=== PATIENT | male | born 1980 ===

== ENCOUNTER 2017-08-08 16:47 | Emergency (ER) | payer OTHER ==
[2017-08-08 16:47] VITALS: BMI 24.0
[2017-08-08] MEDS ORDERED: Midazolam 2 MG/2 ML VIAL IVP STA (17:58)
[2017-08-08] MEDS ORDERED: Midazolam 2 MG/2 ML VIAL ONE (18:02)
--- NOTE | 2017-08-08 18:19 | C.PDOC ---
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 Patient states he fell down 2 steps, out stretched his arm to break his fall. Denies symptoms prior to the fall, head injury, LOC, chest pain, SOB, neck pain, back pain, weakness or numbness. Time Seen by Provider: 08/08/17 18:20 Chief Complaint (Nursing): Trauma History Per: Patient History/Exam Limitations: no limitations Onset/Duration Of Symptoms: Sudden Onset Past Medical History Reviewed: Historical Data, Nursing Documentation, Vital Signs Vital Signs: Last Vital Signs Temp 97 F L 08/08/17 21:02 Pulse 77 08/08/17 21:02 Resp 16 08/08/17 21:02 BP 145/81 08/08/17 21:02 Pulse Ox 99 08/08/17 23:18 Surgical History: Appendectomy Family History: States: No Known Family Hx - Social History Hx Alcohol Use: Yes Hx Substance Use: No Review Of Systems Except As Marked, All Systems Reviewed And Found Negative. Cardiovascular: Negative for: Chest Pain Respiratory: Negative for: Shortness of Breath Musculoskeletal: Positive for: Other ((+) Right elbow injury and pain.). Negative for: Neck Pain, Back Pain Neurological: Negative for: Weakness, Numbness Physical Exam - Physical Exam Appears: Non-toxic, No Acute Distress Skin: Warm, Dry Head: Atraumatic, Normacephalic Cardiovascular: Rhythm Regular, No Murmur Respiratory: Normal Breath Sounds, No Rales, No Wheezing Extremity: Normal ROM (Normal ROM at the right shoulder and right wrist), Capillary Refill (<2 secs), Other (Right Elbow - Deformity. Minimal movement at the elbow. ) Pulses: Left Radial: Normal, Right Radial: Normal Neurological/Psych: Oriented x3, Normal Speech, Normal Motor, Normal Sensation ED Course And Treatment O2 Sat by Pulse Oximetry: 99 (RA) Pulse Ox Interpretation: Normal Medical Decision Making Medical Decision Making: PLAN: * X-Ray - Right Elbow * Tylenol PO * Versed IVP Disposition - Disposition Referrals: Baltazar Mercado MD [Staff Provider] - Disposition: HOME/ ROUTINE Disposition Time: 20:50 Condition: IMPROVED Additional Instructions: Thank you for letting us take care of you today. Your provider was Dr. Bashir. You were treated for elbow dislocation. The emergency medical care you received today was directed at your acute symptoms. If you were prescribed any medication, please fill it and take as directed. It may take several days for your symptoms to resolve. Return to the Emergency Department if your symptoms worsen, do not improve, or if you have any other problems. Please contact your doctor or call one of the physicians/clinics you have been referred to that are listed on the Patient Visit Information form that is included in your discharge packet. Bring any paperwork you were given at discharge with you along with any medications you are taking to your follow up visit. Our treatment cannot replace ongoing medical care by a primary care provider (PCP) outside of the emergency department. Thank you for allowing the [facility] team to be part of your care today. Follow up with Dr. Edwin Rivera (bone doctor) in 2-3 days for re-evaluation and further management. Jose Daniel por permitirnos cuidar de usdillon berman. Henderson proveedor fue el Dr. Bashir. Te trataron por dislocacin del codo. La atencin mdica de emergencia que recibi hoy estaba dirigida a carmen sntomas agudos. Si le recetaron algn medicamento, llnelo y tome helene se le indic. Puede llevar varios keene resolver carmen sntomas. Regrese al Departamento de Emergencias si carmen sntomas empeoran, no mejoran o si tiene algn otro problema. Comunquese con henderson mdico o llame a kamran de los mdicos / clnicas a los que miranda sido derivado que figuran en el formulario de informacin de visita del paciente que se incluye en henderson paquete de tanvi. Lleve consigo cualquier papeleo que reciba al tanvi junto con cualquier medicamento que est tomando en henderson visita de seguimiento. Nuestro tratamiento no puede reemplazar la atencin m dica continua de un proveedor de atencin primaria (PCP) fuera del departamento de emergencias. Jose Daniel por permitir que el equipo de [facility] sea parte de henderson atencin hoy. Yamilet un seguimiento con el Dr. Edwin Rivera (angela love) en 2-3 keene para volver a evaluar y seguir con el tratamiento. Prescriptions: Ibuprofen [Motrin] 600 mg PO Q6 PRN #20 tab PRN Reason: Pain, Moderate (4-7) Instructions: Elbow Dislocation (ED), Splint Care (ED) Forms: Gen Discharge Inst Micronesian Print Language: VINCENTIAN - Clinical Impression Clinical Impression: Dislocation, elbow closed - Scribe Statement The provider has reviewed the documentation as recorded by the Scribe Nadya Santizo Provider Attestation: All medical record entries made by the Scribe were at my direction and personally dictated by me. I have reviewed the chart and agree that the record accurately reflects my personal performance of the history, physical exam, medical decision making, and the department course for this patient. I have also personally directed, reviewed, and agree with the discharge instructions and disposition. ED Procedural Sedation - Pre Anesthesia Assessment Chief Complaint: Trauma Past Medical History: Medications Reviewed, Allergies Reviewed, Record Review Previous Surgies: Reviewed Family History/Social History: Reviewed - Physical Exam/Review of Systems Vital Signs Reviewed: Yes Cardiovascular: Regular Rate and Rhythm, Normal S1, S2. denies: Murmurs Respiratory/Chest: Clear to Auscultation, Good Air Exchange. denies: Respiratory Distress Neurological: GCS=15, CN II-XII Intact, Speech Normal, Motor Func Grossly Intact Abdomen: Normal Bowel Sounds. denies: Tenderness, Distention Mental Status: Alert and Oriented X 3 - Pre-Procedure Airway Assessment History of difficult intubation or surgical airway (i.e trach):: No Inability to extend neck:: No Mouth opening less than two finger breadth:: No Diagnosis of sleep apnea:: No Less than three finger breadth to hyoid bone:: No ASA Criteria: 1 - Healthy, normal. 2 - Mild systemic disease (No functional limitations, mildline obesity, DM withot complications, Hypertention). 3 - Severe systemic disease (Some functional limitation, stable angina, morbid obesity, controlled COPD/Asthma/CHF). 4 - Sever systemic disease constant threat to life (Unstable angina, active symptoms of COPD/Asthma, CHF/ Hypertension. 5 - Moribund ASA Clarification: ASA I Mallampati (airway): Class I - Intra-Procedure (Medications) Medications Given: Discontinued Medications Acetaminophen (Tylenol 325mg Tab) 975 mg PO ONCE ONE Stop: 08/08/17 16:58 Last Admin: 08/08/17 17:00 Dose: 975 mg MAR Pain/Vitals Document 08/08/17 17:00 [facility] (Rec: 08/08/17 17:28 [facility] [id number]) Pain Reassessment Is This A Pain ReAssessment? Yes Sleep Is patient sleeping during reassessment? No Presence of Pain Presence of Pain Yes Pain Scale Used Pain Scale Used Numeric Location Left, Right or Bilateral Right Pain Location Body Site Elbow Re-Assess: MAR Pain/Vitals Document 08/08/17 18:00 NR (Rec: 08/08/17 19:24 [facility] [id number]) Pain Reassessment Is This A Pain ReAssessment? Yes Sleep Is patient sleeping during reassessment? No Presence of Pain Presence of Pain Yes Pain Scale Used Pain Scale Used Numeric Location Left, Right or Bilateral Right Pain Location Body Site Elbow Description Constant Intensity 8 Scale Used Numeric Pain Behavior Withdrawal from Touch Facial Grimacing Fentanyl (Fentanyl) 100 mcg IVP STAT STA Stop: 08/08/17 17:59 Last Admin: 08/08/17 18:03 Dose: 100 mcg IVP Administration Document 08/08/17 18:03 NR (Rec: 08/08/17 19:19 [facility] [id number]) Charges for Administration # of IVP Administrations 1 Midazolam HCl (Versed Inj) 4 mg IVP STAT STA Stop: 08/08/17 17:59 Last Admin: 08/08/17 18:02 Dose: 4 mg IVP Administration Document 08/08/17 18:02 NR (Rec: 08/08/17 19:19 [facility] [id number]) Charges for Administration # of IVP Administrations 1
[2017-08-08 19:17] VITALS: RESP 16
[2017-08-08 21:02] VITALS: BP 145/81; PULSE 77; TEMP 97
[2017-08-08 23:18] VITALS: O2SAT 99
--- NOTE | 2017-08-09 10:28 | RAD ---
PROCEDURE: Radiographs of the right elbow. HISTORY: S/P FALL, DEFORMITY AND PAIN COMPARISON: No prior. FINDINGS: BONES: No gross fracture appreciated. JOINTS: Normal. No osteoarthritis. SOFT TISSUES: Soft tissue swelling. JOINT EFFUSION: The humerus is anteriorly and medially dislocated from the olecranon and the radius. . Large joint effusion OTHER FINDINGS: None. IMPRESSION: Elbow dislocation. Large joint effusion. Soft tissue swelling No fracture appreciated.
--- NOTE | 2017-08-09 10:31 | RAD ---
PROCEDURE: Radiographs of the right elbow. HISTORY: post-reduction COMPARISON: Pre reduction right elbow x-ray FINDINGS: BONES: Possibly of a subtle nondisplaced radial head fracture is not excluded per this single lateral view available. JOINTS: No osteoarthrosis SOFT TISSUES: Soft tissue swelling JOINT EFFUSION: Present OTHER FINDINGS: None. IMPRESSION: The prior elbow is return to normal alignment per this single postreduction lateral view. Possible radial head nondisplaced fracture. Consider elective MRI right elbow for further evaluation
== END 2017-08-08 21:31 | disposition home or self-care (01) ==
LOC: C.ER 16:47
DX: S53.094A Other dislocation of right radial head, initial encounter (principal); W10.9XXA Fall (on) (from) unspecified stairs and steps, initial encounter
CPT/HCPCS: 24600; 73080; 96374; 96375; 99285; J2250; J3010